=== PATIENT | female | born 1995 | race Caucasian/White ===

== ENCOUNTER 2018-08-13 21:34 | Emergency (ER) | payer OTHER ==
--- NOTE | 2018-08-13 22:16 | RADIOLOGY REPORT (SQ) ---
EXAM DESCRIPTION: XR ANKLE 3 OR MORE VIEWS COMPLETED DATE/TME: 08/13/2018 00:00 CLINICAL HISTORY: 22 years, Female, pain Findings: Bony alignment is anatomic. No fracture or dislocation. Soft tissues are unremarkable. Ankle mortise is intact. Soft tissues are unremarkable. IMPRESSION: No fracture.
[2018-08-13 22:41] VITALS: BP 113/67
--- NOTE | 2018-08-14 01:05 | ER Document Report ---
HPI - HPI Patient complains to provider of: right ankle pain Time Seen by Provider: 08/14/18 01:00 Pain Level: 4 Context: Patient is a 22-year-old female that comes to the emergency department for chief complaint of getting her ankle caught/slammed in a closing door. She reports bruising and pain to her ankle just above her foot. She reports mild pain radiating up above this. She denies any other injuries or complaints. She denies any medical problems, daily medications. She denies . - REPRODUCTIVE Reproductive: DENIES: : Past Medical History - General Information source: Patient - Social History Smoking Status: Never Smoker Frequency of alcohol use: None Drug Abuse: None Lives with: Family Family History: Reviewed & Not Pertinent - Medical History Medical History: Negative Surgical Hx: Negative - Immunizations Immunizations up to date: Yes Hx Diphtheria, Pertussis, Tetanus Vaccination: Yes Vertical Provider Document - CONSTITUTIONAL General Appearance: WD/WN, No Apparent Distress - HEENT HEENT: Atraumatic, Normal ENT Exam, Normocephalic - NECK Neck: Normal Inspection - RESPIRATORY Respiratory: Breath Sounds Normal, No Respiratory Distress - CARDIOVASCULAR Cardiovascular: Regular Rate, Regular Rhythm - GI/ABDOMEN Gastrointestinal: Abdomen Soft, Abdomen Non-Tender - BACK Back: Normal Inspection - MUSCULOSKELETAL/EXTREMETIES Musculoskeletal/Extremeties: MAEW, FROM, Tender - There is a small amount of bruising over the right distal anterior tibia just above the foot, normal range of motion of the ankle, normal knee exam, normal distal neurovascular exam, normal exam otherwise. - NEURO Level of Consciousness: Awake, Alert, Appropriate Motor/Sensory: No Motor Deficit, No Sensory Deficit - DERM Integumentary: Warm, Dry, No Rash Course - Re-evaluation Re-evalutation: Patient has bruising to the right anterior ankle just superior to the talus area. She has full range of motion, no concerning swelling, normal distal neurovascular exam. No other signs of injury. X-rays negative for fracture. Discussed with patient, offered immobilization, crutches, she has immobilization at home, requests crutches. Provided with this. Discussed expectations, follow-up, return precautions. Patient states understanding and agreement. - Vital Signs Vital signs: Temp Pulse Resp BP Pulse Ox 98.4 F 112 H 20 113/67 100 08/13/18 22:39 08/13/18 22:39 08/13/18 22:39 08/13/18 22:39 08/13/18 22:39 - Diagnostic Test Radiology reviewed: Image reviewed, Reports reviewed Discharge - Discharge Clinical Impression: Right ankle injury Qualifiers: Encounter type: initial encounter Qualified Code(s): S99.911A - Unspecified injury of right ankle, initial encounter Condition: Stable Disposition: HOME, SELF-CARE Additional Instructions: Your x-ray does not show fracture. Your evaluation shows soft tissue swelling similar to a sprain. Elevate, ice 3-4 times a day for 10-15 minutes, take anti-inflammatory as prescribed. I recommend for the first 2-3 days using crutches. Hasmukh wrap can also help with support and improvement. Symptoms should resolve with time, resume normal activity as tolerated. Follow-up with primary care. Return for any concerning symptoms including severe pain or swelling. Prescriptions: Naproxen [Naprosyn 375 Mg Tablet] 375 mg PO BID PRN #20 tablet PRN Reason:
== END 2018-08-14 01:30 | disposition home or self-care (01) ==
LOC: ER 21:34
DX: S99.911A Unspecified injury of right ankle, initial encounter (principal); W23.0XXA Caught, crushed, jammed, or pinched between moving objects, initial encounter
CPT/HCPCS: 99283